=== PATIENT | female | born 1945 | race Caucasian/White ===

== ENCOUNTER 2016-05-13 07:33 | Day surgery (SDC) | payer OTHER ==
[2016-05-06 14:38] VITALS: BMI 29.8
[2016-05-13] MEDS ORDERED: PROPOFOL 20 ML ONE ×2 (07:35)
[2016-05-13 11:07] VITALS: TEMP 98
[2016-05-13 11:12] VITALS: BP 142/77; PULSE 81
== END 2016-05-13 10:05 | disposition home or self-care (01) ==
LOC: FASU-ENDO 07:33
PROVIDERS: ATTEND Internal Medicine Gastroenterology
PROC: 0DJD8ZZ Inspection of Lower Intestinal Tract, Via Natural or Artificial Opening Endoscopic (ICD-10-PCS; principal; 2016-05-13 09:03)
DX: Z12.11 Encounter for screening for malignant neoplasm of colon (principal); Z80.0 Family history of malignant neoplasm of digestive organs; K57.30 Diverticulosis of large intestine without perforation or abscess without bleeding

== ENCOUNTER 2021-08-19 06:50 | Day surgery (SDC) | payer OTHER, BC ==
[2021-08-13 14:57] VITALS: BMI 29.8
[2021-08-19] MEDS ORDERED: LIDOCAINE HCL/PF 2% SDV 5ML VIAL ONE (08:00)
[2021-08-19] MEDS ORDERED: PROPOFOL 20 ML ONE ×4 (08:01)
[2021-08-19 09:31] VITALS: BP 134/82; PULSE 80; TEMP 97.6
== END 2021-08-19 09:30 | disposition home or self-care (01) ==
LOC: FASU-ENDO 06:50
PROVIDERS: ATTEND Internal Medicine Gastroenterology
PROC: 0DJD8ZZ Inspection of Lower Intestinal Tract, Via Natural or Artificial Opening Endoscopic (ICD-10-PCS; principal; 2021-08-19 08:19)
DX: Z12.11 Encounter for screening for malignant neoplasm of colon (principal); Z80.0 Family history of malignant neoplasm of digestive organs; K57.30 Diverticulosis of large intestine without perforation or abscess without bleeding